=== PATIENT | male | born 1940 | race Caucasian/White ===

== ENCOUNTER 2019-11-07 13:34 | Outpatient (CLI) | payer MEDICARE, MEDICAID, SELFPAY | END 2019-11-07 13:35 | disposition home or self-care (01) | LOC: ANHBWCAUD 13:38 | PROVIDERS: PCP Internal Medicine; Visit Provider Internal Medicine | DX: Z01.10 Encounter for examination of ears and hearing without abnormal findings (principal) | CPT/HCPCS: 99199 ==